=== PATIENT | female | born 1950 | race Caucasian/White ===

== ENCOUNTER → 2016-08-11 | Outpatient (CLI) | payer MEDICARE | LOC: KOH-I 12:31 | DX: R05 Cough (principal); R06.02 Shortness of breath; J90 Pleural effusion, not elsewhere classified; J98.11 Atelectasis | CPT/HCPCS: 71020 ==

== ENCOUNTER → 2016-08-16 | Outpatient (CLI) | payer BC, MEDICARE | LOC: KOH-I 12:42 | DX: R05 Cough (principal); J90 Pleural effusion, not elsewhere classified; R91.8 Other nonspecific abnormal finding of lung field | CPT/HCPCS: 71020 ==

== ENCOUNTER → 2016-08-30 | Outpatient (CLI) | payer MEDICARE | LOC: KOH-I 11:49 | DX: R05 Cough (principal); J98.11 Atelectasis; J18.1 Lobar pneumonia, unspecified organism; J90 Pleural effusion, not elsewhere classified | CPT/HCPCS: 71020 ==